=== PATIENT | female | born 1970 | race Caucasian/White ===

== ENCOUNTER 2021-02-03 14:32 | Inpatient (IN) | payer MEDICAID, SELFPAY ==
[2021-02-03 14:39] VITALS: BP 190/95; PULSE 96; RESP 22; TEMP 36.8; O2SAT 99
[2021-02-03 14:55] VITALS: BP 148/97; PULSE 120; RESP 18; TEMP 36.6; O2SAT 96
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
--- NOTE | 2021-02-03 15:24 | ECG_ITS ---
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 Measurements Intervals Purchase Rate: 93 P: 44 CT: 120 QRS: 15 QRSD: 90 T: 52 QT: 351 QTc: 438 Interpretive Statements SINUS RHYTHM POSSIBLE LEFT ATRIAL ENLARGEMENT [-0.1mV P-WAVE IN V1/V2] Diffused nonspecific T wave changes No previous ECG available for comparison Electronically Signed On 02-04-2021 16:26:22 CDT by Chandrakant Calhoun M.D. [email or web address]
--- NOTE | 2021-02-03 15:40 | PC.NURSE ---
One on one sitter assigned to patient at all times, Patient is resting in low fowlers at this time, she is quiet and cooperative, Fiance at bedside as well. She denies any needs.
[2021-02-03 16:37] VITALS: BP 158/93; PULSE 68; RESP 16; TEMP 36.8; O2SAT 98
[2021-02-03] MEDS: LORazepam 2 mg/mL INJ 1 mL 0.5 MG IVP (17:22)
[2021-02-03] MEDS: lactated ringers 1,000 ML 999 ML IV (17:23)
[2021-02-03 18:00] LABS: Basophils # 0.1 10^3/uL (0.0-0.1); Basophils % 0.8 %; Eosinophils # 0.2 10^3/uL (0.0-0.8); Eosinophils % 2.9 %; Hematocrit 45.9 % (37.0-47.0); Hemoglobin 15.6 g/dL (11.5-15.3); Lymphocytes # 1.9 10^3/uL (0.8-4.8); Lymphocytes % 23.4 %; Mean Corpuscular Hemoglobin 28.9 pg (28.0-34.0); Mean Corpuscular Volume 85.2 fl (81-99); Mean Platelet Volume 9.3 fL (7.4-10.4); Monocytes # 0.6 10^3/uL (0.2-0.9); Monocytes % 7.3 %; Neutrophils # 5.14 10^3/uL (1.8-7.7); Neutrophils % 65.1 %; Nucleated Red Blood Cells % 0 %; Platelet Count 354 10^3/cmm (130-400); Red Blood Count 5.39 10^6/uL (4.1-5.3); Red Cell Distribution Width 12.8 % (12.1-15.1); White Blood Count 7.9 10^3/uL (4.0-10.0)
[2021-02-03 18:28] LABS: Alanine Aminotransferase 51 U/L (0-33); Albumin Level 4.7 g/dL (3.5-5.2); Alkaline Phosphatase 117 IU/L (35-105); Anion Gap 16.2 (5-19); Aspartate Amino Transferase 39 U/L (0-32); Blood Urea Nitrogen 14 mg/dL (6-20); Calcium 9.8 mg/dL (8.5-10.5); Carbon Dioxide 27 mmol/L (22-29); Chloride 99 mmol/L (98-107); Globulin 3.6 g/dL (1.3-4.6); Glomerular Filtration Rate 105.8 mL/min (90-130); Glucose 106 mg/dL (65-115); Osmolality Calculated 287 mOsm/kg (285-295); Potassium 4.2 mmol/L (3.5-5.1); Sodium 138 mmol/L (136-145); Total Bilirubin 0.3 mg/dL (0.15-1.2); Total Protein 8.3 g/dL (6.6-8.7)
[2021-02-03 18:36] LABS: Acetaminophen < 5.0 ug/mL (10-30); Salicylate < 0.3 mg/dL (3-10)
[2021-02-03 19:06] LABS: Bilirubin Urine Neg (Negative); Blood Urine Neg (Negative); Glucose Urine UA Norm (Normal); Ketones Urine Negative (Negative); Leukocyte Esterase Urine Negative (Negative); Nitrate Urine Negative (Negative); Protein Urine Neg (Negative); Urine Appearance Clear (CLEAR); Urine Color Yellow (Yellow); Urobilinogen Urine Norm (Negative); pH Urine 5 (5-7)
[2021-02-03 19:08] LABS: Add Urine Culture? No; Bacteria Urine 1+ /hpf; RBC Urine 0-4 /hpf (0-2); Squamous Epithelial Cell Urine 15-25 /hpf (0-5); WBC Urine 0-4 /hpf (0-5)
[2021-02-03 19:12] LABS: Amphetamines Screen Urine Positive (Negative); Barbiturates Screen Urine Negative (Negative); Benzodiazepines Screen Urine Negative (Negative); Cocaine Screen Urine Negative (Negative); Opiate Screen Urine Negative (Negative); PCP Screen Urine Negative (Negative); THC Screen Urine Negative (Negative)
[2021-02-03 20:41] VITALS: BP 152/84; PULSE 98; RESP 16; TEMP 36.8; O2SAT 97
--- NOTE | 2021-02-03 20:54 | PC.NURSE ---
Called report to Era RN at 2052, she requested us to hold for 30 minutes due to multiple admissions.
[2021-02-03 21:45] VITALS: BP 177/142; PULSE 104; RESP 15; TEMP 36.3; O2SAT 96
[2021-02-03 22:30] VITALS: BP 153/94
[2021-02-03] MEDS: hyDROXYzine 25 mg Capsule 50 MG PO (22:52)
[2021-02-03] MEDS: trazodone 50 mg Tablet PO (22:52)
--- NOTE | 2021-02-03 22:55 | PC.NURSE ---
PT REQUESTED SLEEP AND ANXIETY MEDS, TRAZODONE 50MG PO FOR SLEEP AND VISTARIL 50MG PO GIVEN FOR ANXIETY.
--- NOTE | 2021-02-04 | PC.NURSE ---
PT RESTING QUIETLY WITH BOTH EYES CLOSED AT THIS TIME.
[2021-02-04 05:21] VITALS: BMI 25.8
[2021-02-04 06:00] VITALS: BP 106/71; PULSE 99; RESP 20; TEMP 36.3; O2SAT 97
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
[2021-02-04 14:20] VITALS: BP 124/76; PULSE 93; RESP 18; TEMP 36.8; O2SAT 99
[2021-02-04] MEDS: PARoxetine 20 mg Tablet 30 MG PO (21:03)
[2021-02-04] MEDS: lamoTRIgine 25 mg Tablet PO (21:04)
[2021-02-04 21:52] VITALS: BP 130/89; PULSE 101; RESP 15; TEMP 36.9; O2SAT 98
[2021-02-05 06:00] VITALS: BP 87/51; PULSE 56; RESP 15; TEMP 36.9; O2SAT 99
[2021-02-05 14:00] VITALS: BP 142/92; PULSE 87; RESP 17; TEMP 36.3; O2SAT 97
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
[2021-02-05 16:30] VITALS: BP 142/92; PULSE 87; RESP 17; TEMP 36.3; O2SAT 97
== END 2021-02-05 16:56 | disposition home or self-care (01) | DRG 882 ==
LOC: ER 19:35 → NP 02-04 06:39
PROVIDERS: Admitting Provider Psychiatry & Neurology Psychiatry; Emergency Provider Emergency Medicine; PCP Nurse Practitioner Family; Visit Provider Psychiatry & Neurology Psychiatry
DX: F43.10 Post-traumatic stress disorder, unspecified (principal); R45.851 Suicidal ideations; F32.9 Major depressive disorder, single episode, unspecified; F60.89 Other specific personality disorders; F41.9 Anxiety disorder, unspecified; F15.14 Other stimulant abuse with stimulant-induced mood disorder; Z91.5 Personal history of self-harm; Z91.410 Personal history of adult physical and sexual abuse
CPT/HCPCS: 80053; 80306; 80307; 81001; 85025; 93005; 96361; 96374; 99285; J2060

== ENCOUNTER → 2022-08-06 15:09 | Outpatient (BNVA) | payer MEDICAID, SELFPAY | PROVIDERS: PCP Nurse Practitioner Family; Referring Provider Nurse Practitioner Family; Visit Provider Internal Medicine | DX: E03.8 Other specified hypothyroidism (principal); E06.3 Autoimmune thyroiditis; N92.6 Irregular menstruation, unspecified; Z79.890 Hormone replacement therapy | CPT/HCPCS: 99204 ==

== ENCOUNTER 2022-10-09 12:29 | Outpatient (CLI) | payer MEDICAID, SELFPAY ==
[2022-10-09 14:00] LABS: 25 Hydroxy Vitamin D 37 ng/mL (30-100); Thyroid Stimulating Hormone 2.38 uIU/mL (0.27-4.20)
== END 2022-10-09 12:30 | disposition home or self-care (01) ==
LOC: LAB 12:32
PROVIDERS: PCP Nurse Practitioner Family; Visit Provider Internal Medicine
DX: E03.8 Other specified hypothyroidism (principal); E06.3 Autoimmune thyroiditis; N92.6 Irregular menstruation, unspecified
CPT/HCPCS: 36415; 82306; 84439; 84443

== ENCOUNTER → 2022-10-16 13:20 | Outpatient (BNVA) | payer MEDICAID, SELFPAY | PROVIDERS: PCP Family Medicine Adult Medicine; Visit Provider Internal Medicine | DX: E06.3 Autoimmune thyroiditis (principal); E03.8 Other specified hypothyroidism; G47.00 Insomnia, unspecified; Z79.890 Hormone replacement therapy | CPT/HCPCS: 99214 ==

== ENCOUNTER 2022-11-13 17:45 | Outpatient (CLI) | payer MEDICAID, SELFPAY ==
[2022-11-13 21:58] LABS: Free T4 Free Thyroxine 1.11 ng/dL (0.82-1.77); Thyroid Stimulating Hormone 1.33 uIU/mL (0.27-4.20)
== END 2022-11-13 17:46 | disposition home or self-care (01) ==
LOC: LAB 17:48
PROVIDERS: PCP Family Medicine Adult Medicine; Visit Provider Internal Medicine
DX: E03.8 Other specified hypothyroidism (principal); E06.3 Autoimmune thyroiditis; G47.00 Insomnia, unspecified; N92.6 Irregular menstruation, unspecified
CPT/HCPCS: 84439; 84443

== ENCOUNTER → 2022-12-09 16:20 | Outpatient (BNVA) | payer MEDICAID, SELFPAY | PROVIDERS: PCP Family Medicine Adult Medicine; Visit Provider Nurse Practitioner Psychiatric/Mental Health | DX: Z79.899 Other long term (current) drug therapy (principal) | CPT/HCPCS: 80053 ==

== ENCOUNTER → 2022-12-16 12:59 | Outpatient (BNVA) | payer MEDICAID, SELFPAY | PROVIDERS: PCP Family Medicine Adult Medicine; Visit Provider Internal Medicine | DX: F41.1 Generalized anxiety disorder (principal); N95.0 Postmenopausal bleeding; E03.8 Other specified hypothyroidism; E06.3 Autoimmune thyroiditis; G47.00 Insomnia, unspecified; Z79.890 Hormone replacement therapy | CPT/HCPCS: 99214 ==

== ENCOUNTER 2022-12-22 13:05 | Emergency (ER) | payer MEDICAID, SELFPAY ==
[2022-12-22 13:28] VITALS: BP 160/120; PULSE 84; RESP 16; TEMP 36.6; O2SAT 97; BMI 25.0
--- NOTE | 2022-12-22 13:41 | CTR_ITS ---
PROCEDURE INFORMATION: Exam: CT Abdomen And Pelvis With Contrast Exam date and time: 12/22/2022 2:01 PM Age: 52 years old Clinical indication: Abdominal pain; Localized; Lower; Prior surgery; Surgery date: 6+ months; Surgery type: Tubal; Additional info: Abd pain.No history of trauma or recent surgery is provided. TECHNIQUE: Imaging protocol: Computed tomography of the abdomen and pelvis with contrast. 202image(s) are provided. Radiation optimization: All CT scans at this facility use at least one of these dose optimization techniques: automated exposure control; mA and/or kV adjustment per patient size (includes targeted exams where dose is matched to clinical indication); or iterative reconstruction. Contrast material: OMNI 350; Contrast volume: 100 ml; Contrast route: INTRAVENOUS (IV); Other technique: Axial images are available with sagittal and coronal reconstruction views. Automated dose exposure control is utilized. The DLP is 517.39. REPORTING DATA: Count of CT and Cardiac NM exams in prior 12 months: This patient has received 0 known CTs and 0 known cardiac nuclear medicine studies in the 12 months prior to the current study. COMPARISON: No relevant prior studies available. RADIATION DOSE METRICS: Total DLP (mGy-cm): 517.39 FINDINGS: Lungs: No lobar consolidation is appreciated. Liver: There is some hepatic steatosis overall. There is some fluid density albeit too small to characterize right liver lobe superiorly. Gallbladder and bile ducts: There is some calcified gallstone appearance for example measuring approximately 1.1 cm in diameter. Pancreas: No pancreatic ductal dilatation or calcification is appreciated. Spleen: Unremarkable. Adrenal glands: Unremarkable. Kidneys and ureters: There is homogeneous renal parenchymal enhancement overall with no radiopaque obstructive calculus or hydronephrosis appreciated. There do appear to be some nonobstructive punctate calculi for example at the right inferior pole calices. Stomach and bowel: The bowel gas pattern appears nonobstructive.Some aspects of the colon are undistended. This may also be peristaltic related.There is abundant stool present limiting mucosal detail evaluation. Appendix: No evidence of appendicitis. Intraperitoneal space: No free air or free fluid collections are appreciated. Vasculature: No abdominal aortic aneurysmal dilatation or periaortic fluid is appreciated. Lymph nodes: There are subcentimeter predominant para-aortic and mesenteric lymph nodes overall present. Urinary bladder: The bladder is incompletely fluid filled for evaluation which may exagerate the wall thickness. This can also be seen with post inflammation sequela. Reproductive: There is some slightly heterogeneous appearance of the uterine parenchyma along with a small amount of central uterine canal fluid present. There appear to be some ovarian follicular cystic changes. For example measuring approximally 1.8 x 1.6 cm on the right. In addition there are some nonspecific changes and possibly nabothian related about the cervical junction. There are pelvic tubal interventional type changes present correspondingly. Bones/joints: Osseous alignment is maintained.No displaced fracture or dislocation is appreciated. There is some spurring with slight disc space narrowing and marginal bulging at the lower lumbar spine predominantly contributing to some neural foraminal narrowing overall. There is some sclerosis suggestive of bone island type appearance about the right iliac hemipelvis. There are some mild degenerative changes about the sacroiliac joints along with some sacralization segmentation more so on the left. Soft tissues: No radiopaque foreign body or subcutaneous emphysema is appreciated. There are breast implant surgical changes present. There is some minimal umbilical level lipomatous eventration with no bowel or fluid currently appreciated. Other findings: There is some motion artifact present. CT/CT abdomen pelvis w con* [id number] IMPRESSION: 1. No fluid collections or acute inflammatory stranding changes are appreciated. 2. There is some calcified gallstone appearance along with mild hepatic steatosis. 3. There is some central uterine canal fluid present along with cervical nabothian cystic type changes and ovarian follicular type changes present overall.
--- NOTE | 2022-12-22 13:42 | W.ED.ABDPA2 ---
HPI - Abdominal Pain General: Chief Complaint: Abdominal Pain Stated Complaint: abd pain Time Seen by Provider: 12/22/22 13:07 Source: patient Mode of arrival: ambulatory Limitations: no limitations History of Present Illness: 52-year-old female states she has been having abdominal pain along with vaginal bleeding over the last 5 days she states she is scheduled for ultrasound tomorrow but states pain was worsening today its lower in nature rates today 6 out of 10 denies any worsening improving factors. Denies any fevers Associated Symptoms: Denies chills, diarrhea, dysuria, fever(s), nausea and vomiting Review of Systems Const: Denies: fever(s), chills, body aches or change in appetite Eyes: Denies: blurry vision or eye discomfort ENMT: Denies: throat pain or dental pain Card: Denies: chest pain Resp: Denies: dyspnea GI: Reports: abdominal pain; Denies: nausea, vomiting or diarrhea : Reports: vaginal bleeding; Denies: dysuria Musc: Denies: neck pain or back pain Skin/Breast: Denies: rash Neuro: Denies: headache(s) PFSH ED PFSH: Medical History Acid reflux Agoraphobia with panic disorder Atopic eczema Chronic post-traumatic stress disorder (PTSD) Methamphetamine abuse Nausea alone Osteoarthritis Psychiatric care Suicide attempt by drug ingestion Worms in stool Social History Smoking and tobacco status: never smoked Alcohol intake: never Substance/Drug Use: never Adopted: No Caregiver/support person: No Lives independently: Yes Household members: spouse Marital status: service: No Current occupational status: unemployed Current gender identity: Female Special silvana needs: No Physical Exam Const: COMMON NORMALS: no acute distress, patient oriented x3 and healthy appearing HENMT: COMMON NORMALS: normocephalic and atraumatic HEAD & SCALP: normocephalic and atraumatic Eye: COMMON NORMALS: conjunctivae normal CONJUNCTIVA: Yes conjunctivae normal Neck/C-Spine: COMMON NORMALS: full ROM and supple Chest: COMMONS NORMALS: normal inspection of the chest Resp: COMMON NORMALS: normal respiratory effort, No retractions, No use of accessory muscles and clear to auscultation bilaterally AUSCULTATION: clear to auscultation bilaterally Cardio: COMMON NORMALS: regular rate, regular rhythm and No murmurs present (Cardio) RATE: regular rate RHYTHM: regular rhythm GI: COMMON NORMALS: Normal to inspection, nondistended, normoactive bowel sounds present, Soft to palpation, non-tender and no masses PALPATION: Yes Soft to palpation Extremity: COMMON NORMALS: normal to inspection and full ROM Neuro: COMMON NORMALS: patient oriented x3, moves all extremities and no focal motor deficits Psych: COMMON NORMALS: mental status grossly normal, Normal thought process present and cooperative THOUGHT PROCESS: Normal thought process present Skin: COMMON NORMALS: no rashes or lesions noted and no wounds GENERAL SKIN EXAM: no rashes or lesions noted Course Vital Signs: Vital signs: Vital Signs Temperature 97.9 F 12/22/22 13:28 Pulse Rate 84 12/22/22 13:28 Respiratory Rate 16 12/22/22 13:28 Blood Pressure 160/120 12/22/22 13:28 Pulse Oximetry 97 12/22/22 13:28 Oxygen Delivery Me thod Room Air 12/22/22 13:28 MDM - Abdominal Pain Medical Decision Making Patient presents with lower abdominal pain blood work urinalysis CT scan here are all normal she has been well-appearing here her vitals are normal she is stable for discharge she is to get her ultrasound scheduled tomorrow and then follow-up with her provider return if worsening she understands agrees to plan. Medical Records I reviewed the patient's medical records. Lab Data I reviewed the patient's lab results. 12/22/22 13:57 12/22/22 13:57 Labs/Radiology: Radiology Impressions Abdomen/Pelvis CT 12/22/22 13:41 IMPRESSION: 1. No fluid collections or acute inflammatory stranding changes are appreciated. 2. There is some calcified gallstone appearance along with mild hepatic steatosis. 3. There is some central uterine canal fluid present along with cervical nabothian cystic type changes and ovarian follicular type changes present overall. Laboratory Results WBC 9.0 10^3/uL (4.0-10.0) 12/22/22 13:57 RBC 4.77 10^6/uL (4.1-5.3) 12/22/22 13:57 Hgb 13.9 g/dL (11.5-15.3) 12/22/22 13:57 Hct 40.7 % (37.0-47.0) 12/22/22 13:57 MCV 85.3 fl (81-99) 12/22/22 13:57 MCH 29.1 pg (28.0-34.0) 12/22/22 13:57 MCHC 34.2 g/dL (30.0-36.0) 12/22/22 13:57 RDW 12.6 % (12.1-15.1) 12/22/22 13:57 Plt Count 348 10^3/cmm (130-400) 12/22/22 13:57 MPV 9.3 fL (7.4-10.4) 12/22/22 13:57 Neut % (Auto) 63.7 % 12/22/22 13:57 Lymph % (Auto) 20.1 % 12/22/22 13:57 [place] % (Auto) 10.3 % 12/22/22 13:57 Eos % (Auto) 4.0 % 12/22/22 13:57 Baso % (Auto) 1.1 % 12/22/22 13:57 Neut # (Auto) 5.72 10^3/uL (1.8-7.7) 12/22/22 13:57 Lymph # (Auto) 1.8 10^3/uL (0.8-4.8) 12/22/22 13:57 [place] # (Auto) 0.9 10^3/uL (0.2-0.9) 12/22/22 13:57 Eos # (Auto) 0.4 10^3/uL (0.0-0.8) 12/22/22 13:57 Baso # (Auto) 0.1 10^3/uL (0.0-0.1) 12/22/22 13:57 Nucleated RBC % (auto) 0 % 12/22/22 13:57 Nucleated RBCs # 0.0 /100WBC 12/22/22 13:57 Sodium 137 mmol/L (136-145) 12/22/22 13:57 Potassium 4.2 mmol/L (3.5-5.1) 12/22/22 13:57 Chloride 100 mmol/L (98-107) 12/22/22 13:57 Carbon Dioxide 24 mmol/L (22-29) 12/22/22 13:57 Anion Gap 17.2 (5-19) 12/22/22 13:57 BUN 13 mg/dL (6-20) 12/22/22 13:57 Creatinine 0.5 mg/dL (0.5-0.9) 12/22/22 13:57 GFR Calculation 129.6 mL/min (90-130) 12/22/22 13:57 Glucose 96 mg/dL (65-115) 12/22/22 13:57 Calculated Osmolality 284 mOsm/kg (285-295) L 12/22/22 13:57 Calcium 9.1 mg/dL (8.5-10.5) 12/22/22 13:57 Total Bilirubin 0.2 mg/dL (0.15-1.2) 12/22/22 13:57 AST 46 U/L (0-32) H 12/22/22 13:57 ALT 44 U/L (0-33) H 12/22/22 13:57 Alkaline Phosphatase 110 U/L (35-105) H 12/22/22 13:57 Total Protein 7.0 g/dL (6.6-8.7) 12/22/22 13:57 Albumin 4.1 g/dL (3.5-5.2) 12/22/22 13:57 Globulin 2.9 g/dL (1.3-4.6) 12/22/22 13:57 Lipase 39 U/L (13-60) 12/22/22 13:57 Urine Color Yellow (Yellow) 12/22/22 14:25 Urine Appearance Clear (CLEAR) 12/22/22 14:25 Urine pH 6 (5-7) 12/22/22 14:25 Ur Specific [place] 1.010 (1.005-1.030) 12/22/22 14:25 Urine Protein Neg (Negative) 12/22/22 14:25 Urine Glucose (UA) Norm (Normal) 12/22/22 14:25 Urine Ketones Negative (Negative) 12/22/22 14:25 Urine Blood Neg (Negative) 12/22/22 14:25 Urine Nitrate Negative (Negative) 12/22/22 14:25 Urine Bilirubin Neg (Negative) 12/22/22 14:25 Urine Urobilinogen Norm mg/dL (Negative) 12/22/22 14:25 Ur Leukocyte Esterase Negative (Negative) 12/22/22 14:25 Discharge Plan Discharge Patient Disposition: Home Clinical Impression: Abdominal pain Condition: Stable Prescriptions: No Action mirtazapine 15 mg tablet 15 mg PO BEDTIME cholecalciferol (vitamin D3) 50 mcg (2,000 unit) capsule 50 mcg PO DAILY biotin 5,000 mcg Tablet, Sublingual 15,000 mcg SUBLINGUAL DAILY Rx Instructions: (3 tabs) ibuprofen 800 mg tablet 800 mg PO Q6H PRN (Reason: Pain) levothyroxine 75 mcg tablet 75 mcg PO QAM alprazolam 0.25 mg tablet 0.25 mg PO Q8H PRN (Reason: anxiety/panic attacks) Discharge Orders: Discharge ED (Routine); Ordered 12/22/22 Ordered By: Cornelia Shah Referrals: Merlin Green MD [Primary Care Provider] - 1-3 days Discharge Diet: Advance as tolerated Discharge Activity: Resume usual activity Patient Instructions: Abdominal Pain (ED) Coding Level of Care Code ED Bee Raiser for Sada Luz
[2022-12-22] MEDS: ondansetron 2 mg/ML SDV 2 mL 4 MG IVP (14:01)
[2022-12-22] MEDS: morphine 4 mg/mL SDV 1 mL IVP (14:01)
[2022-12-22] MEDS: sodium chloride 0.9% 1,000 ML 999 ML IV (14:01)
--- NOTE | 2022-12-22 14:02 | PC.PHAR ---
pt states she takes care of her own medications-pt states she no longer takes celexa states she had a reaction to it states not taken celexa 40mg daily for 3 weeks ext shows last filled 11/30/22 14d/s-rx written 12/09/22 prozac 20mg for one week take 20mg qam and then increase to 40mg qam pt states didnt pick remover and is not going to take-
[2022-12-22 14:05] LABS: Basophils # 0.1 10^3/uL (0.0-0.1); Basophils % 1.1 %; Eosinophils # 0.4 10^3/uL (0.0-0.8); Hematocrit 40.7 % (37.0-47.0); Hemoglobin 13.9 g/dL (11.5-15.3); Lymphocytes # 1.8 10^3/uL (0.8-4.8); Lymphocytes % 20.1 %; Mean Corpuscular HGB Conc 34.2 g/dL (30.0-36.0); Mean Corpuscular Hemoglobin 29.1 pg (28.0-34.0); Mean Corpuscular Volume 85.3 fl (81-99); Mean Platelet Volume 9.3 fL (7.4-10.4); Monocytes # 0.9 10^3/uL (0.2-0.9); Monocytes % 10.3 %; Neutrophils # 5.72 10^3/uL (1.8-7.7); Neutrophils % 63.7 %; Nucleated Red Blood Cells % 0 %; Platelet Count 348 10^3/cmm (130-400); Red Blood Count 4.77 10^6/uL (4.1-5.3); Red Cell Distribution Width 12.6 % (12.1-15.1)
[2022-12-22] MEDS: iohexol 350 mg/mL 500 mL Btl (per mL) IV (14:10)
[2022-12-22 14:19] LABS: Alanine Aminotransferase 44 U/L (0-33); Albumin Level 4.1 g/dL (3.5-5.2); Alkaline Phosphatase 110 U/L (35-105); Anion Gap 17.2 (5-19); Aspartate Amino Transferase 46 U/L (0-32); Blood Urea Nitrogen 13 mg/dL (6-20); Calcium 9.1 mg/dL (8.5-10.5); Carbon Dioxide 24 mmol/L (22-29); Chloride 100 mmol/L (98-107); Globulin 2.9 g/dL (1.3-4.6); Glomerular Filtration Rate 129.6 mL/min (90-130); Glucose 96 mg/dL (65-115); Lipase 39 U/L (13-60); Osmolality Calculated 284 mOsm/kg (285-295); Potassium 4.2 mmol/L (3.5-5.1); Sodium 137 mmol/L (136-145); Total Bilirubin 0.2 mg/dL (0.15-1.2)
[2022-12-22 14:49] LABS: Add Urine Microscopic? NO; Charge for UA Resulting for Rev
[2022-12-22 14:53] LABS: Urine Appearance Clear (CLEAR); Urine Color Yellow (Yellow); pH Urine 6 (5-7)
[2022-12-22 14:54] LABS: Bilirubin Urine Neg (Negative); Blood Urine Neg (Negative); Glucose Urine UA Norm (Normal); Ketones Urine Negative (Negative); Leukocyte Esterase Urine Negative (Negative); Nitrate Urine Negative (Negative); Protein Urine Neg (Negative); Urobilinogen Urine Norm (Negative)
== END 2022-12-22 15:15 | disposition home or self-care (01) ==
PROVIDERS: Emergency Provider Emergency Medicine; PCP Family Medicine Adult Medicine
DX: R10.30 Lower abdominal pain, unspecified (principal)
CPT/HCPCS: 74177; 80053; 81003; 83690; 85025; 96374; 96375; 99285; J2270; J2405; J7030; Q9967

== ENCOUNTER 2022-12-23 06:58 | Outpatient (CLI) | payer MEDICAID, SELFPAY ==
--- NOTE | 2022-12-23 07:15 | US_ITS ---
WS: [id number] US transvaginal [id number] HISTORY: post menopausal bleeding COMPARISON: None available. Uterus: 8.5 cm x 5.7 cm x 4.3 cm. Normal size anteverted uterus. No fibroid or mass. Endometrium: 1.0 cm. Endometrium is enlarged for postmenopausal patient. There is normal homogeneity throughout the endometrium. No discrete mass identified. No increased vascularity. Numerous nabothian cysts along the cervical canal. Right ovary: 2.5 cm x 2.1 cm x 1.9 cm. Normal size and vascularity, no cystic or solid masses. There is a small follicle associated with the ovary measuring 1.7 x 1.3 x 1.6 cm. Left ovary: 2.6 cm x 1.8 cm x 2.5 cm. Normal size and vascularity, no cystic or solid masses. No free fluid in the cul-de-sac. US/US transvaginal [id number] IMPRESSION: 1. Enlarged endometrium for postmenopausal patient. No significant heterogenei ty no mass identified. Direct visualization with endometrial biopsy may be nece ssary to exclude malignancy. 2. Otherwise negative.
== END 2022-12-23 06:59 | disposition home or self-care (01) ==
LOC: RAD 07:00
PROVIDERS: PCP Family Medicine Adult Medicine; Visit Provider Internal Medicine
DX: N95.0 Postmenopausal bleeding (principal); E03.8 Other specified hypothyroidism; E06.3 Autoimmune thyroiditis; N85.00 Endometrial hyperplasia, unspecified
CPT/HCPCS: 76830

== ENCOUNTER → 2022-12-25 14:50 | Outpatient (BNVA) | payer MEDICAID, SELFPAY | PROVIDERS: PCP Family Medicine Adult Medicine; Referring Provider Internal Medicine; Visit Provider Obstetrics & Gynecology | DX: Z01.419 Encounter for gynecological examination (general) (routine) without abnormal findings (principal) | CPT/HCPCS: 87624 ==

== ENCOUNTER 2023-02-06 05:53 | Day surgery (SDC) | payer MEDICAID, SELFPAY ==
[2023-02-05 09:30] VITALS: BMI 27.3
--- NOTE | 2023-02-05 19:31 | P.HP_ITS ---
Same Day Surgery H&P Indication for Procedure/HPI DATE OF PROCEDURE: February 06, 2023 CHIEF COMPLAINT/INDICATIONFOR SURGICAL PROCEDURE: abnormal uterine bleeding PREOP DIAGNOSIS: abnormal uterine bleeding PLANNED PROCEDURE: Operation Date: 02/06/23 07:40 Proposed Procedures p Hysteroscopy, endometrial sampling, possible endometrial polypectomy with Lucretia costello 29200, N95.0(Not Applicable) - Jj Padilla MD s Poylpectomy(Not Applicable) - Jj Padilla MD 52 y.o. h/o BTL at age 30 LNMP 2 years ago Began to have heavy bleeding in November 2022 ?gushing down to floor? Then bleeding stopped No bleeding, spotting since Now scheduled for hysteroscopy, endometrial sampling, possible endometrial polypectomy Medications/Allergies* Home Medications Medication Instructions Recorded Confirmed Type cholecalciferol (vitamin D3) 50 50 mcg PO DAILY 11/04/22 02/05/23 History mcg (2,000 unit) capsule biotin 5,000 mcg sublingual tablet 15,000 mcg sublingual DAILY 12/22/22 02/05/23 History levothyroxine 75 mcg tablet 75 mcg PO QAM 12/22/22 02/05/23 History Allergies/Adverse Reactions Allergy/AdvReac Type Severity Reaction Status Date / Time lamotrigine Allergy Intermediate ALGY-Hives Verified 02/05/23 09:24 citalopram [From Celexa] Allergy Unknown Verified 02/05/23 09:24 Pertinent History/Comorbid Conditions* Medical History (Updated 01/09/23 @ 17:39 by Merlin Green MD) Acid reflux Agoraphobia with panic disorder Alopecia Atopic eczema Chronic post-traumatic stress disorder (PTSD) Methamphetamine abuse Migraine headache Nausea alone Osteoarthritis Psychiatric care Skin change Suicide attempt by drug ingestion Family History (Updated 01/16/23 @ 15:14 by Leonela Joyner LPN) Father Mother Cancer Mother Father colon and lung Social History Smoking and tobacco status: never smoked Second hand smoke exposure: Yes (sister outside) Alcohol intake: never Substance/Drug Use: never Adopted: No Caregiver/support person: No Lives independently: Yes Household members: other Details: sister and her Housing: House Marital status: Single Number of children: 1 Number of grandchildren: 1 Highest education level completed: Some College, No Degree service: No Current occupational status: unemployed Current occupation: filing for disability Current occupational exposures/hazards: No Pets and animals: Yes Pets & animals: dog(s) Pets & animal details: in home but not mine Leisure activites: exercise and other Leisure activities details: go for walks Sexually active: No Do you think of yourself as: Straight/Heterosexual Current gender identity: Female Jasmyne/Scientology: Ep[employer]opalian Special jasmyne needs: No Agree to transfusion: Yes Financial difficulty paying for basics: Very Hard Pertinent Exam Findings alert, oriented x 3, clear to auscultation bilaterally and regular rate & rhythm Pertinent Data Pap 12-25-22 NILM, negative HPV Pelvic sono 12-23-22 normal-sized uterus Endometrium 1 cm, homogeneous Normal ovaries CT scan abdomen/pelvis 12-22-22 WNL Recommendations Surgery/Procedure today Other Plans: proceed with hysteroscopy, endometrial sampling, possible endometrial polypectomy February 06, 2023 Coding Level of Care Code Acute Code for Chg Fwd Diagnoses Time Spent (min) 15
[2023-02-06] VITALS (9 sets, daily range): BP systolic 127–152; BP diastolic 83–101; PULSE 74–92; RESP 16; TEMP 36.1–36.2; O2SAT 98–100
[2023-02-06 06:26] LABS: OR HCG Qualitative Urine Negative (Negative)
[2023-02-06] MEDS: sodium chloride 0.9% 1,000 ML 30 ML IV (06:29)
--- NOTE | 2023-02-06 07:18 | W.PM.OPSUD ---
Surgery/Procedure H&P Update DATE OF PROCEDURE: February 06, 2023 DATE H&P PERFORMED: 02/05/23 H&P UPDATE INFORMATION: I have reviewed H&P completed within last 30 days, I have examined patient prior to procedure and No changes to prior documentation PREOP DIAGNOSIS: abnormal uterine bleeding PLANNED PROCEDURE: Operation Date: 02/06/23 07:40 Proposed Procedures p Hysteroscopy, endometrial sampling, possible endometrial polypectomy with Myosure 83544, N95.0(Not Applicable) - Jj Padilla MD s Poylpectomy(Not Applicable) - Jj Padilla MD
--- NOTE | 2023-02-06 08:10 | ANES.PREANE2 ---
Pre-Anesthetic Assessment Height/Weight: Height 1.7 m Weight 79.379 kg Temp Pulse Resp BP Pulse Ox O2 Del Method 97 F L 82 16 149/99 98 Room Air 02/06/23 08:06 02/06/23 08:06 02/06/23 08:06 02/06/23 08:06 02/06/23 08:06 02/06/23 08:06 Preop Diagnosis: abnormal uterine bleeding Operation Date: 02/06/23 07:40 Proposed Procedures p Hysteroscopy, endometrial sampling, possible endometrial polypectomy with Myosure 02074, N95.0(Not Applicable) - Jj Padilla MD s Poylpectomy(Not Applicable) - Jj Padilla MD Familial anesthetic complications: none Was Beta Freddy taken within 24 hours: N/A Was Clonidine taken within 24 hours: N/A Last intake: Intake Last Liquid Date 02/05/23 Last Liquid Time 18:00 Last Solid Date 02/05/23 Last Solid Time 18:00 Social No alcohol and No tobacco Exam alert, oriented x 3, clear to auscultation bilaterally and regular rate & rhythm Airway Submandibular: within normal limits Cervical ROM: within normal limits Mallampati: Class I Dentition: chipped Metabolic Thyroid Disease [facility] [place] Osteoarthritis/DJD Neuropsych Anxiety, Depression and Headache Anesthetic Plan ASA status: 2 Anesthesia: General Medications/Allergies Home Medications Medication Instructions Recorded Confirmed Last Taken Type cholecalciferol (vitamin D3) 50 50 mcg PO DAILY 11/04/22 02/05/23 02/04/23 History mcg (2,000 unit) capsule biotin 5,000 mcg sublingual tablet 15,000 mcg sublingual DAILY 12/22/22 02/05/23 02/04/23 History levothyroxine 75 mcg tablet 75 mcg PO QAM 12/22/22 02/06/23 02/06/23 04:45 History mirtazapine 15 mg tablet 22.5 mg PO BEDTIME mental health 12/31/22 02/05/23 02/04/23 Rx 30 days #45 tabs ondansetron HCl 4 mg tablet 4 mg PO Q6H PRN nausea and 01/01/23 02/05/23 Unknown Rx vomiting #30 tabs rizatriptan 5 mg tablet 5 mg PO Q2H PRN migraine headache 01/01/23 02/05/23 Unknown Rx #14 tabs alprazolam 0.25 mg tablet 0.25 mg PO Q8H PRN anxiety/panic 02/04/23 02/06/23 02/06/23 04:45 Rx attacks #30 tabs Allergies Allergy/AdvReac Type Severity Reaction Status Date / Time lamotrigine Allergy Intermediate ALGY-Hives Verified 02/06/23 06:21 citalopram [From Celexa] Allergy Unknown Verified 02/05/23 09:24 Current Medications Generic Name Dose Route Start Last Admin Trade Name Freq PRN Reason Stop Dose Admin Sodium Chloride 1,000 mls @ 30 mls/hr 02/06/23 06:15 02/06/23 06:29 Sodium Chloride 0.9% IV 02/07/23 06:14 30 mls/hr .Q24H CHARITO Administration PFSH Anesthesia Medical History Acid reflux Agoraphobia with panic disorder Alopecia Atopic eczema Chronic post-traumatic stress disorder (PTSD) Methamphetamine abuse Migraine headache Nausea alone Osteoarthritis Psychiatric care Skin change Suicide attempt by drug ingestion Family History (Updated 01/16/23 @ 15:14 by Leonela Joyner LPN) Mother Cancer Father Cancer colon and lung Social History (Updated 01/16/23 @ 14:32 by Leonela Joyner LPN) Smoking and tobacco status: never smoked Second hand smoke exposure: Yes (sister outside) Alcohol intake: never Substance/Drug Use: never Adopted: No Caregiver/support person: No Lives independently: Yes Household members: other Details: sister and her Housing: House Marital status: Single Number of children: 1 Number of grandchildren: 1 Highest education level completed: Some College, No Degree service: No Current occupational status: unemployed Current occupation: filing for disability Current occupational exposures/hazards: No Pets and animals: Yes Pets & animals: dog(s) Pets & animal details: in home but not mine Leisure activites: exercise and other Leisure activities details: go for walks Sexually active: No Do you think of yourself as: Straight/Heterosexual Current gender identity: Female Jasmyne/Yarsanism: Pentecostalism Special jasmyne needs: No Agree to transfusion: Yes Financial difficulty paying for basics: Very Hard Female Reproductive History Para: 1 Data Anesthesia Cardiac Studies: No Data to Display
--- NOTE | 2023-02-06 13:45 | ANE.PACU2 ---
Inpatient post-anesthesia follow up: Airway intact: Yes Vital signs: Temperature 97.2 F Pulse Rate 81 Respiratory Rate 16 Blood Pressure 145/88 Pulse Oximetry 100 Oxygen Delivery Me thod Room Air Oxygen Flow Rate Fraction of Inspir ed Oxygen Hydration adequate: Yes Nausea and vomiting: No Pain level: 2 Mental status: Baseline
--- NOTE | 2023-02-06 17:59 | PM.OP ---
Operative Report Date of procedure: February 06, 2023 Pre-op diagnosis: Preop Diagnosis abnormal uterine bleeding Post-op diagnosis: same Post-op findings: normal endometrial cavity No polyps / fibroids Minimal endometrial tissue Procedure done: hysteroscopy Curettage of uterus Specimens removed/disposition: endometrial tissue Surgeon: Jj Padilla MD Anesthesia: MAC Estimated blood loss (mL): 5 Complications: none Condition: stable Disposition: PACU Brief History: 52 y.o. with abnormal uterine bleeding Procedure: Informed consent signed. Patient was taken to the operating room. Anesthesia was induced. Patient was placed in dorsolithotomy position, prepped and draped for hysteroscopy. A bivalve speculum was placed in the vagina. The anterior lip of the cervix was grasped with a sharp-toothed tenaculum. The cervix was serially dilated with Hegar dilators. . A hysteroscope was placed into the endometrial cavity. The endometrial cavity was seen to be normal. There were no polyps or fibroids. There was minimal endometrial tissue. The hysteroscope was then removed. Endometrial curettage was done with a sharp curette. Endometrial tissue was sent to pathology. The hysteroscope was re-introduced and the endometrial cavity was seen to be intact. The hysteroscope was removed. The sharp-toothed tenaculum was removed. There was no bleeding from the endometrial cavity or cervix. The patient was then placed supine and awakened and taken to the PACU. Postop condition: stable EBL: 5 cc Sponge and instruments counts were normal x 2 Complications: none
== END 2023-02-06 09:05 | disposition home or self-care (01) ==
PROVIDERS: Anesthesiology; PCP Family Medicine Adult Medicine; Visit Provider Obstetrics & Gynecology
PROC: 0UDB8ZZ Extraction of Endometrium, Via Natural or Artificial Opening Endoscopic (ICD-10-PCS; CPT 58558; principal; 2023-02-06 07:30)
DX: N93.9 Abnormal uterine and vaginal bleeding, unspecified (principal); M19.90 Unspecified osteoarthritis, unspecified site
CPT/HCPCS: 58558; 81025; 84703; 88305; J2405; J2704; J3010; J7030

== ENCOUNTER 2023-02-14 10:29 | Outpatient (CLI) | payer MEDICAID, SELFPAY ==
[2023-02-14 11:37] LABS: Free T4 Free Thyroxine 1.18 ng/dL (0.82-1.77); Thyroid Stimulating Hormone 1.64 uIU/mL (0.27-4.20)
[2023-02-14 12:17] LABS: Vitamin B12 358 pg/mL (232-1245)
== END 2023-02-14 10:30 | disposition home or self-care (01) ==
LOC: LAB 10:36
PROVIDERS: PCP Family Medicine Adult Medicine; Visit Provider Internal Medicine
DX: E03.8 Other specified hypothyroidism (principal); E06.3 Autoimmune thyroiditis; N95.0 Postmenopausal bleeding
CPT/HCPCS: 36415; 82607; 84439; 84443

== ENCOUNTER → 2023-02-18 14:58 | Outpatient (BNVA) | payer MEDICAID, SELFPAY | PROVIDERS: PCP Family Medicine Adult Medicine; Visit Provider Internal Medicine | DX: E03.8 Other specified hypothyroidism (principal); E06.3 Autoimmune thyroiditis; N95.0 Postmenopausal bleeding; Z79.890 Hormone replacement therapy | CPT/HCPCS: 99214 ==

== ENCOUNTER → 2023-02-21 11:14 | Outpatient (BNVA) | payer MEDICAID, OTHER, SELFPAY | PROVIDERS: PCP Family Medicine Adult Medicine; Referring Provider Family Medicine Adult Medicine; Visit Provider Nurse Practitioner Family | DX: L82.1 Other seborrheic keratosis (principal); L65.9 Nonscarring hair loss, unspecified; S80.861A Insect bite (nonvenomous), right lower leg, initial encounter; S80.862A Insect bite (nonvenomous), left lower leg, initial encounter; D22.39 Melanocytic nevi of other parts of face; Z80.8 Family history of malignant neoplasm of other organs or systems; L81.4 Other melanin hyperpigmentation; Y99.9 Unspecified external cause status | CPT/HCPCS: 99203 ==

== ENCOUNTER 2023-04-01 11:01 | Outpatient (CLI) | payer MEDICAID, SELFPAY ==
--- NOTE | 2023-04-01 11:07 | MM_ITS ---
WS: [id number] BILATERAL 3D TOMOSYNTHESIS DIGITAL SCREENING MAMMOGRAPHY WITH CAD CLINICAL INFORMATION: routine HISTORY: Screening mammogram. No current complaints. COMPARISON: 2019 TECHNIQUE: Bilateral CC and MLO views. FINDINGS: Bilateral saline breast implants mammographically intact unchanged. The breasts are composed of heterogeneous fibroglandular density tissue, which can limit the detectio n of small underlying mass lesions. No suspicious mass, asymmetry, calcifications, or architectural d istortion. No evidence of malignancy. IMPRESSION: MM/[place] [id number] BI-RADS: 2-Benign FOLLOW UP: 1 Year Follow-up Recommend return to annual screening mammography.
== END 2023-04-01 11:02 | disposition home or self-care (01) ==
PROVIDERS: PCP Family Medicine Adult Medicine; Visit Provider Family Medicine Adult Medicine
DX: Z12.31 Encounter for screening mammogram for malignant neoplasm of breast (principal); Z00.00 Encounter for general adult medical examination without abnormal findings
CPT/HCPCS: 77063; 77067

== ENCOUNTER 2023-04-15 11:34 | Outpatient (CLI) | payer MEDICAID, SELFPAY ==
[2023-04-15 12:28] LABS: Free T4 Free Thyroxine 1.33 ng/dL (0.82-1.77); Thyroid Stimulating Hormone 1.64 uIU/mL (0.27-4.20)
== END 2023-04-15 11:35 | disposition home or self-care (01) ==
PROVIDERS: PCP Family Medicine Adult Medicine; Visit Provider Internal Medicine
DX: E03.8 Other specified hypothyroidism (principal); E06.3 Autoimmune thyroiditis; G47.00 Insomnia, unspecified; N95.0 Postmenopausal bleeding
CPT/HCPCS: 36415; 84439; 84443

== ENCOUNTER → 2023-06-04 13:32 | Outpatient (BNVA) | payer OTHER, SELFPAY | PROVIDERS: PCP Family Medicine Adult Medicine; Visit Provider Nurse Practitioner Psychiatric/Mental Health | DX: F33.2 Major depressive disorder, recurrent severe without psychotic features (principal); F41.1 Generalized anxiety disorder; F40.01 Agoraphobia with panic disorder; F60.9 Personality disorder, unspecified; Z79.899 Other long term (current) drug therapy | CPT/HCPCS: 80061; 83036 ==

== ENCOUNTER → 2023-09-05 13:35 | Outpatient (BNVA) | payer MEDICAID, SELFPAY ==
[2023-06-12 10:05] VITALS: BP 151/83; BMI 28.6
== END ==
PROVIDERS: PCP Family Medicine Adult Medicine; Visit Provider Family Medicine Adult Medicine
DX: R53.83 Other fatigue (principal)
CPT/HCPCS: 84439; 84443

== ENCOUNTER → 2023-10-10 10:00 | Outpatient (BNVA) | payer OTHER, SELFPAY ==
[2023-06-12 10:05] VITALS: BP 151/83; BMI 28.6
== END ==
PROVIDERS: PCP Family Medicine Adult Medicine; Visit Provider Nurse Practitioner Psychiatric/Mental Health
DX: Z79.899 Other long term (current) drug therapy (principal)
CPT/HCPCS: 80053; 80061; 83036

== ENCOUNTER 2023-10-17 14:55 | Outpatient (CLI) | payer MEDICAID, SELFPAY ==
[2023-06-12 10:05] VITALS: BP 151/83; BMI 28.6
[2023-10-17 16:02] LABS: Free T4 Free Thyroxine 1.36 ng/dL (0.82-1.77); Thyroid Stimulating Hormone 2.34 uIU/mL (0.27-4.20)
== END 2023-10-17 14:56 | disposition home or self-care (01) ==
LOC: LAB 15:02
PROVIDERS: PCP Family Medicine Adult Medicine; Visit Provider Internal Medicine
DX: E03.8 Other specified hypothyroidism (principal); E06.3 Autoimmune thyroiditis
CPT/HCPCS: 36415; 84439; 84443

== ENCOUNTER → 2023-10-21 11:09 | Outpatient (BNVA) | payer MEDICAID, SELFPAY ==
[2023-06-12 10:05] VITALS: BP 151/83; BMI 28.6
== END ==
PROVIDERS: PCP Family Medicine Adult Medicine; Visit Provider Internal Medicine
DX: E03.8 Other specified hypothyroidism (principal); E06.3 Autoimmune thyroiditis; E11.9 Type 2 diabetes mellitus without complications; F19.982 Other psychoactive substance use, unspecified with psychoactive substance-induced sleep disorder; N95.0 Postmenopausal bleeding; Z79.890 Hormone replacement therapy
CPT/HCPCS: 99214

== ENCOUNTER → 2024-03-30 08:00 | Outpatient (BNVA) | payer MEDICAID, SELFPAY ==
[2023-06-12 10:05] VITALS: BP 151/83; BMI 28.6
== END ==
PROVIDERS: PCP Family Medicine Adult Medicine; Referring Provider Nurse Practitioner Psychiatric/Mental Health; Visit Provider Psychiatry & Neurology Neurology
DX: F43.12 Post-traumatic stress disorder, chronic; R41.3 Other amnesia; H57.89 Other specified disorders of eye and adnexa; F33.2 Major depressive disorder, recurrent severe without psychotic features; F41.1 Generalized anxiety disorder; I10 Essential (primary) hypertension; E03.8 Other specified hypothyroidism; E06.3 Autoimmune thyroiditis; E11.9 Type 2 diabetes mellitus without complications; G56.03 Carpal tunnel syndrome, bilateral upper limbs; G43.011 Migraine without aura, intractable, with status migrainosus; R29.898 Other symptoms and signs involving the musculoskeletal system; R68.89 Other general symptoms and signs; R41.0 Disorientation, unspecified
CPT/HCPCS: 36415; 80053; 80061; 82306; 82607; 82746; 83036; 83090; 83735; 83921; 84439; 84443; 86617; 99203; 99204

== ENCOUNTER → 2024-03-31 15:44 | Outpatient (BNVA) | payer MEDICAID, SELFPAY ==
[2023-06-12 10:05] VITALS: BP 151/83; BMI 28.6
== END ==
PROVIDERS: PCP Family Medicine Adult Medicine; Visit Provider Family Medicine
DX: R53.83 Other fatigue (principal)
CPT/HCPCS: 85025; 86038

== ENCOUNTER → 2024-04-02 11:36 | Outpatient (BNVA) | payer MEDICAID, SELFPAY ==
[2023-06-12 10:05] VITALS: BP 151/83; BMI 28.6
== END ==
PROVIDERS: PCP Family Medicine Adult Medicine; Visit Provider Internal Medicine
DX: E03.8 Other specified hypothyroidism (principal); E06.3 Autoimmune thyroiditis; E11.9 Type 2 diabetes mellitus without complications; F19.982 Other psychoactive substance use, unspecified with psychoactive substance-induced sleep disorder; N95.0 Postmenopausal bleeding; Z79.890 Hormone replacement therapy
CPT/HCPCS: 99214

== ENCOUNTER 2024-04-14 16:31 | Outpatient (CLI) | payer MEDICAID, SELFPAY ==
[2023-06-12 10:05] VITALS: BP 151/83; BMI 28.6
--- NOTE | 2024-04-14 16:45 | MR_ITS ---
WS: [id number] MRI BRAIN WITH AND WITHOUT CONTRAST HISTORY: G43.909 - Migraine, unspecified, not intractable, without... COMPARISON: None available. TECHNIQUE: Multiplanar imaging performed through the brain with MultiHance 16 ml's IV. No acute infarcts are seen. Byrne-white matter differentiation is well preserved. Mild periventricular T2 and FLAIR signal hyperintensities. No prior infarct. No hemorrhage. No susceptibility artifacts or prior lacunar infarcts. Ventricles and extra-axial spaces are normal. Clivus and pituitary gland are normal. Visualized posterior fossa and brainstem are also normal. Postcontrast images are negative for masses or vascular malformations. Dural venous sinuses are normal. Paranasal sinuses: Well aerated with no significant disease. Mastoid air cells: Normal. Calvarium and scalp: Normal. MR/MR head wo/w con [id number] IMPRESSION: 1. No acute infarct. No hemorrhage. 2. Mild T2 and FLAIR signal hyperintensities in periventricular distribution. This can be seen with small vessel ischemic disease, migraines, diabetes, hyper tension or demyelination. 3. No prior infarct.
== END 2024-04-14 16:32 | disposition home or self-care (01) ==
LOC: RAD 16:31
PROVIDERS: PCP Family Medicine Adult Medicine; Visit Provider Psychiatry & Neurology Neurology
DX: G43.909 Migraine, unspecified, not intractable, without status migrainosus (principal); F43.12 Post-traumatic stress disorder, chronic; R41.3 Other amnesia
CPT/HCPCS: 70553; A9577

== ENCOUNTER 2024-04-16 09:04 | Outpatient (CLI) | payer MEDICAID, SELFPAY ==
[2023-06-12 10:05] VITALS: BP 151/83; BMI 28.6
[2024-04-16 10:08] LABS: Follicle Stimulating Hormone 62.2 mIU/mL
[2024-04-16 10:09] LABS: Creatinine Urine, Random 56 mg/dL (28-217); Microalbum Creatinine Ratio Ur 18 mg/dL (0-20); Microalbumin Random Urine 1 ug/dL (0-20)
[2024-04-16 10:36] LABS: Cortisol Random 8.69 ug/dL (2.47-19.5)
== END 2024-04-16 09:05 | disposition home or self-care (01) ==
LOC: LAB 09:05
PROVIDERS: PCP Family Medicine Adult Medicine; Visit Provider Internal Medicine
DX: E03.8 Other specified hypothyroidism (principal); E06.3 Autoimmune thyroiditis; N92.6 Irregular menstruation, unspecified; E11.9 Type 2 diabetes mellitus without complications
CPT/HCPCS: 36415; 82044; 82533; 82670; 83001

== ENCOUNTER → 2024-04-20 07:51 | Outpatient (BNVA) | payer MEDICAID, SELFPAY ==
[2023-06-12 10:05] VITALS: BP 151/83; BMI 28.6
== END ==
PROVIDERS: PCP Family Medicine Adult Medicine; Referring Provider Psychiatry & Neurology Neurology; Visit Provider Psychiatry & Neurology Neurology
DX: R29.898 Other symptoms and signs involving the musculoskeletal system (principal); G56.00 Carpal tunnel syndrome, unspecified upper limb; G62.9 Polyneuropathy, unspecified
CPT/HCPCS: 95911

== ENCOUNTER → 2024-05-03 10:31 | Outpatient (BNVA) | payer MEDICAID, SELFPAY ==
[2023-06-12 10:05] VITALS: BP 151/83; BMI 28.6
== END ==
PROVIDERS: PCP Family Medicine Adult Medicine; Visit Provider Nurse Practitioner
DX: G56.03 Carpal tunnel syndrome, bilateral upper limbs; R03.0 Elevated blood-pressure reading, without diagnosis of hypertension
CPT/HCPCS: 36415; 73110; 80053; 85025; 99204

== ENCOUNTER → 2024-05-19 09:00 | Outpatient (BNVA) | payer SELFPAY ==
[2023-06-12 10:05] VITALS: BP 151/83; BMI 28.6
== END ==
PROVIDERS: PCP Family Medicine Adult Medicine; Visit Provider Internal Medicine
DX: E03.8 Other specified hypothyroidism (principal); E06.3 Autoimmune thyroiditis; F19.982 Other psychoactive substance use, unspecified with psychoactive substance-induced sleep disorder; N95.0 Postmenopausal bleeding; E11.9 Type 2 diabetes mellitus without complications; Z79.890 Hormone replacement therapy
CPT/HCPCS: 99214

== ENCOUNTER 2024-09-22 09:24 | Outpatient (CLI) | payer MEDICAID, SELFPAY ==
[2023-06-12 10:05] VITALS: BP 151/83; BMI 28.6
--- NOTE | 2024-09-22 09:20 | MM_ITS ---
WS: [id number] BILATERAL SCREENING DIGITAL BREAST MAMMOGRAPHY WITH JAMA DISPLACEMENT VIEWS. CAD PERFORMED. HISTORY: screening COMPARISON: 04/01/2023, 03/01/2019 Bilateral craniocaudal and mediolateral oblique views are performed with tomosynthesis and SM. Jama displacement views in CC and MLO projection also performed. Breasts composition: The breasts are heterogeneously dense, which may obscure small masses. Prepectoral implants are intact. There is partial capsular contraction. No collapse or extravasation from the implants. There are a few very tiny calcifications scattered within each breast. No suspicious mass or distortion. No cluster of calcifications. MM/MM scr BI tomosynthesis [id number] IMPRESSION: BI-RADS: 2 - Benign FOLLOW-UP: 1 Year Follow-up
== END 2024-09-22 09:25 | disposition home or self-care (01) ==
PROVIDERS: PCP Family Medicine; Visit Provider Family Medicine
DX: Z12.31 Encounter for screening mammogram for malignant neoplasm of breast (principal); R92.333 Mammographic heterogeneous density, bilateral breasts; Z98.82 Breast implant status; N64.89 Other specified disorders of breast
CPT/HCPCS: 77063; 77067

== ENCOUNTER 2024-09-28 12:26 | Outpatient (CLI) | payer MEDICAID, SELFPAY ==
[2023-06-12 10:05] VITALS: BP 151/83; BMI 28.6
[2024-09-28 14:07] LABS: Vitamin B12 357 pg/mL (232-1245)
[2024-09-28 14:08] LABS: Folate Level 13.1 ng/mL (4.8-37.3)
[2024-09-29 17:29] LABS: Lyme AB Screen <0.90 index
== END 2024-09-28 12:27 | disposition home or self-care (01) ==
PROVIDERS: PCP Family Medicine; Visit Provider Dermatology
DX: F45.8 Other somatoform disorders (principal)
CPT/HCPCS: 36415; 82607; 82746; 84630; 86003; 86008; 86618; 86666; 86757

== ENCOUNTER → 2024-10-05 14:30 | Outpatient (BNVA) | payer MEDICAID, SELFPAY ==
[2023-06-12 10:05] VITALS: BP 151/83; BMI 28.6
== END ==
PROVIDERS: PCP Family Medicine Adult Medicine; Referring Provider Psychiatry & Neurology Neurology; Visit Provider Psychiatry & Neurology Neurology
DX: R56.9 Unspecified convulsions (principal)
CPT/HCPCS: 95816; 95819

== ENCOUNTER 2024-10-18 12:51 | Outpatient (CLI) | payer MEDICAID, SELFPAY ==
[2023-06-12 10:05] VITALS: BP 151/83; BMI 28.6
[2024-10-18 14:02] LABS: Estmated Average Glucose 143; Hemoglobin A1C 6.6 % (4.0-6.0)
[2024-10-18 14:18] LABS: Creatinine Urine, Random 25 mg/dL (28-217); Microalbum Creatinine Ratio Ur 40 mg/dL (0-20); Microalbumin Random Urine 1 ug/dL (0-20)
[2024-10-18 14:29] LABS: Alanine Aminotransferase 13 U/L (0-33); Albumin Level 4.2 g/dL (3.5-5.2); Alkaline Phosphatase 104 U/L (35-105); Anion Gap 14.3 (5-19); Aspartate Amino Transferase 17 U/L (0-32); Blood Urea Nitrogen 9 mg/dL (6-20); Calcium 9.2 mg/dL (8.5-10.5); Carbon Dioxide 28 mmol/L (22-29); Chloride 102 mmol/L (98-107); Chol HDL Ratio 3.58 mg/dL (0.0-4.40); Cholesterol 143 mg/dL (0-200); Free T4 Free Thyroxine 1.26 ng/dL (0.82-1.77); Globulin 2.7 g/dL (1.3-4.6); Glomerular Filtration Rate 128.6 mL/min (90-130); Glucose 133 mg/dL (65-115); HDL Cholesterol 40 mg/dL (60-100); LDL Cholesterol Calculated 74 mg/dL (50-129); LDL HDL Ratio 1.85 RATIO (0.00-3.22); Osmolality Calculated 291 mOsm/kg (285-295); Potassium 4.3 mmol/L (3.5-5.1); Sodium 140 mmol/L (136-145); Thyroid Stimulating Hormone 1.36 uIU/mL (0.27-4.20); Total Bilirubin 0.3 mg/dL (0.15-1.2); Total Protein 6.9 g/dL (6.6-8.7); Triglycerides 146 mg/dL (0-150)
== END 2024-10-18 12:52 | disposition home or self-care (01) ==
LOC: LAB 12:53
PROVIDERS: PCP Family Medicine Adult Medicine; Visit Provider Internal Medicine
DX: E03.8 Other specified hypothyroidism (principal); E06.3 Autoimmune thyroiditis; M19.90 Unspecified osteoarthritis, unspecified site; E11.9 Type 2 diabetes mellitus without complications; R53.82 Chronic fatigue, unspecified
CPT/HCPCS: 80053; 80061; 82044; 83036; 84439; 84443

== ENCOUNTER → 2024-10-19 10:14 | Outpatient (BNVA) | payer MEDICAID, SELFPAY ==
[2023-06-12 10:05] VITALS: BP 151/83; BMI 28.6
== END ==
PROVIDERS: PCP Family Medicine Adult Medicine; Visit Provider Internal Medicine
DX: E11.9 Type 2 diabetes mellitus without complications (principal); E03.8 Other specified hypothyroidism; E06.3 Autoimmune thyroiditis
CPT/HCPCS: 99214

== ENCOUNTER → 2025-03-02 12:08 | Outpatient (BNVA) | payer MEDICAID, SELFPAY ==
[2024-12-21 14:14] VITALS: BP 151/83; BMI 28.6
== END ==
PROVIDERS: PCP Family Medicine; Visit Provider Nurse Practitioner Psychiatric/Mental Health
DX: Z03.89 Encounter for observation for other suspected diseases and conditions ruled out (principal)
CPT/HCPCS: 81001; 87086

== ENCOUNTER 2025-03-11 14:55 | Outpatient (CLI) | payer MEDICAID, SELFPAY ==
[2024-12-21 14:14] VITALS: BP 151/83; BMI 28.6
[2025-03-11 15:49] LABS: Creatinine Urine, Random 169 mg/dL (28-217); Microalbum Creatinine Ratio Ur 12 mg/dL (0-20)
[2025-03-11 15:50] LABS: Estmated Average Glucose 134; Hemoglobin A1C 6.3 % (4.0-6.0)
[2025-03-11 15:59] LABS: Alanine Aminotransferase 16 U/L (0-33); Albumin Level 4.3 g/dL (3.5-5.2); Alkaline Phosphatase 128 U/L (35-105); Anion Gap 14.0 (5-19); Aspartate Amino Transferase 18 U/L (0-32); Blood Urea Nitrogen 21 mg/dL (6-20); Calcium 8.9 mg/dL (8.5-10.5); Carbon Dioxide 28 mmol/L (22-29); Chloride 103 mmol/L (98-107); Cholesterol 186 mg/dL (0-200); Free T4 Free Thyroxine 0.97 ng/dL (0.82-1.77); Globulin 2.8 g/dL (1.3-4.6); Glucose 168 mg/dL (65-115); HDL Cholesterol 38 mg/dL (60-100); Osmolality Calculated 299 mOsm/kg (285-295); Potassium 4.0 mmol/L (3.5-5.1); Sodium 141 mmol/L (136-145); Thyroid Stimulating Hormone 1.18 uIU/mL (0.27-4.20); Total Protein 7.1 g/dL (6.6-8.7); Triglycerides 205 mg/dL (0-150)
== END 2025-03-11 14:56 | disposition home or self-care (01) ==
PROVIDERS: PCP Family Medicine; Visit Provider Internal Medicine
DX: E11.9 Type 2 diabetes mellitus without complications (principal); F19.982 Other psychoactive substance use, unspecified with psychoactive substance-induced sleep disorder
CPT/HCPCS: 80053; 80061; 82044; 83036; 84439; 84443